=== PATIENT | female | born 1985 | race Two or more races ===

== ENCOUNTER 2024-08-13 13:02 | Emergency (ER) | payer SELFPAY ==
[~2024-08-13] VITALS: Ht 167.6 cm; Wt 81.6 kg
[2024-08-13 13:10] VITALS: BP 111/71; TEMP 98; O2SAT 100
[2024-08-13 13:11] VITALS: PULSE 99; O2SAT 99
== END 2024-08-13 17:36 | disposition left against medical advice (07) ==
LOC: ER 13:02
DX: M54.9 Dorsalgia, unspecified (principal); M54.2 Cervicalgia; Z53.21 Procedure and treatment not carried out due to patient leaving prior to being seen by health care provider